=== PATIENT | male | born 1980 | race Two or more races ===

== ENCOUNTER → 2024-08-01 | Outpatient (REF) | payer MEDICAID, OTHER ==
[~2024-08-01] MED LIST: ADDE10CA3 PO; ADDE12.5 PO; ADDE1TAB22 PO; ADDE20CA3 PO; ALBU17IN INH; ALBU2.5V10 INH; AMBI12.52 PO; AMBI6.25 PO; CELE1CAP4 PO; CLAR10CA3 PO; GLUC500T PO; HYDR-3713 PO; HYDR-3719 PO; HYDR12.55 PO; KEFL500C17 PO; LISI2.5T49 PO; LISI20TA35 PO; LYRI150C PO; METF500T13 PO; MINI1CAP PO; MIRT15TA3 PO; MIRT1TAB PO; PREG25CA PO; PROZ10CA7 PO; PROZ40CA PO; SIMV-254 PO; SIMV40TA20 PO; SOMA350T PO; TIZA2CAP PO; TIZA4CAP PO; VENL75TA2 PO; ZEST1TAB7 PO; adderall OR; align OR; epipen IM; hydrocodone OR; ventolin INH
[2024-08-01 18:47] LABS: BASO # 0.1 10^3/uL (0.0-0.2); EOS # 0.1 10^3/uL (0.0-0.5); EOS % 1.9 % (0.0-3.0); HEMATOCRIT 41.6 % (42.0-52.0); HEMOGLOBIN 13.4 g/dl (13.5-17.5); LYMPH % 57.1 % (24.0-44.0); MEAN CORPUSCULAR HEMOGLOBIN 28.2 pg (27.0-33.0); MEAN CORPUSCULAR HGB CONC 32.2 g/dl (32.0-36.5); MEAN CORPUSCULAR VOLUME 87.6 fl (80.0-96.0); MONO # 0.4 10^3/uL (0.0-0.8); MONO % 6.7 % (2.0-8.0); NEUTROPHILS # 1.7 10^3/uL (1.5-8.5); NEUTROPHILS % 33.1 % (36.0-66.0); PLATELET COUNT, AUTOMATED 284 10^3/uL (150-450); RED BLOOD COUNT 4.75 10^6/uL (4.30-6.10); WHITE BLOOD COUNT 5.2 10^3/uL (4.0-10.0)
[2024-08-01 19:16] LABS: HEMOGLOBIN A1c 12.9 % (4.0-6.0)
[2024-08-01 19:20] LABS: ALBUMIN 3.9 G/DL (3.2-5.2); ALKALINE PHOSPHATASE 63 U/L (40-129); ALT/SGPT 22 U/L (7.0-40); AST/SGOT 8 U/L (<34); BILIRUBIN,TOTAL < 0.2 MG/DL (0.3-1.2); BLOOD UREA NITROGEN 12 MG/DL (9-23); CALCIUM LEVEL 10.4 MG/DL (8.5-10.1); CARBON DIOXIDE LEVEL 29 MMOL/L (20-31); CHLORIDE LEVEL 104 MMOL/L (98-107); CHOLESTEROL LEVEL 200 MG/DL (<200); CHOLESTEROL RISK RATIO 3.96 (<5); CREATININE FOR GFR 0.85 MG/DL (0.70-1.30); GLOMERULAR FILTRATION RATE > 60.0 (>60); GLUCOSE, FASTING 216 MG/DL (60-100); HDL CHOLESTEROL 50.5 MG/DL (>40); LDL CHOLESTEROL 112.5 MG/DL (<100); NON-HDL-C 149.5 MG/DL; POTASSIUM SERUM 4.4 MMOL/L (3.5-5.1); SODIUM LEVEL 137 MMOL/L (136-145); TOTAL PROTEIN 7.5 G/DL (5.7-8.2); TRIGLYCERIDES LEVEL 185 MG/DL (<150)
[2024-08-01 19:21] LABS: THYROID STIMULATING HORMONE 2.255 uIU/ML (0.55-4.78)
[2024-08-01 19:22] LABS: TOTAL 25(OH) VITAMIN D 33.6 NG/ML (20.0-100.0)
== END ==
LOC: M LAB REF 17:39
PROVIDERS: ATTEND Nurse Practitioner Family
DX: E55.9 Vitamin D deficiency, unspecified (principal); E66.9 Obesity, unspecified; Z13.1 Encounter for screening for diabetes mellitus